=== PATIENT | female | born 1980 | race Caucasian/White ===

== ENCOUNTER 2017-01-11 14:38 | Emergency (ER) | payer OTHER ==
[~2017-01-11 14:38] MED LIST: MACROBID 100 M100 MG PO; NAPROSYN500 MG PO; NORCO 7.5-3251 EACH PO
[2017-01-11 16:37] LABS: RED BLOOD COUNT 5.27 M/UL (4.00-5.10); WHITE BLOOD COUNT 6.1 K/UL (4.5-11.0)
[2017-01-11 17:03] LABS: BUN/CREATININE RATIO 16 (0-10)
== END 2017-01-11 21:18 | disposition home or self-care (01) ==
LOC: ER1 14:38
PROVIDERS: Emergency Medicine
DX: R00.2 Palpitations (principal); R55 Syncope and collapse; R42 Dizziness and giddiness; Z88.1 Allergy status to other antibiotic agents
CPT/HCPCS: 36415; 71020; 80053; 83690; 84484; 85025; 85379; 93005; 96360; 96361; 99285

== ENCOUNTER 2020-11-26 11:00 | Emergency (ER) | payer OTHER ==
[~2020-11-26 11:00] MED LIST changes: +ANTIVERT 25MG T25 MG PO; +PREDNISONE20 MG PO; +ZOFRAN ODT 4 MG4 MG SL
[2020-11-26 11:43] LABS: HEMOGLOBIN 14.7 gm/dl (12.3-15.3); RED BLOOD COUNT 5.2 M/UL (4.00-5.10); WHITE BLOOD COUNT 7.6 K/UL (4.5-11.0)
[2020-11-26 12:01] LABS: BUN/CREATININE RATIO 17 (0-10)
== END 2020-11-26 16:05 | disposition home or self-care (01) ==
LOC: ER1 11:00
PROVIDERS: Emergency Medicine
DX: R53.1 Weakness (principal); R20.0 Anesthesia of skin; I10 Essential (primary) hypertension
CPT/HCPCS: 70450; 70496; 70498; 71045; 72125; 80053; 81001; 82550; 82553; 83605; 84484; 85025; 93005; 96374; 96375; 99285; J0360; J2405; Q9967

== ENCOUNTER 2020-12-01 13:44 | Emergency (ER) | payer OTHER ==
[2020-12-01 14:12] LABS: HEMOGLOBIN 15.8 gm/dl (12.3-15.3); RED BLOOD COUNT 5.25 M/UL (4.00-5.10); WHITE BLOOD COUNT 5.4 K/UL (4.5-11.0)
[2020-12-01 14:34] LABS: BUN/CREATININE RATIO 10 (0-10)
== END 2020-12-01 17:12 | disposition home or self-care (01) ==
LOC: ER1 13:44
PROVIDERS: Emergency Medicine
DX: R06.4 Hyperventilation (principal); I10 Essential (primary) hypertension
CPT/HCPCS: 36600; 70450; 71045; 80053; 81001; 82550; 82553; 82803; 83874; 84484; 85025; 85610; 85730; 93005; 96374; 99285; J2060

== ENCOUNTER → 2020-12-26 | Outpatient (CLI) | payer OTHER ==
[~2020-12-26] MED LIST changes: +METOPROLOL SUCC25 MG PO
== END ==
LOC: HEART 5 13:17
DX: I63.9 Cerebral infarction, unspecified (principal)

== ENCOUNTER 2021-01-04 15:10 | Emergency (ER) | payer OTHER ==
[~2021-01-04 15:10] MED LIST changes: -METOPROLOL SUCC25 MG PO
[2021-01-04 16:37] LABS: HEMOGLOBIN 14.7 gm/dl (12.3-15.3); RED BLOOD COUNT 4.97 M/UL (4.00-5.10); WHITE BLOOD COUNT 5.4 K/UL (4.5-11.0)
[2021-01-04 16:55] LABS: BUN/CREATININE RATIO 13 (0-10)
== END 2021-01-04 20:05 | disposition home or self-care (01) ==
LOC: ER1 15:10
PROVIDERS: Physician Assistant
DX: R55 Syncope and collapse (principal); R07.9 Chest pain, unspecified; R51.9 Headache, unspecified; E78.5 Hyperlipidemia, unspecified; J45.909 Unspecified asthma, uncomplicated; I10 Essential (primary) hypertension; Z86.73 Personal history of transient ischemic attack (TIA), and cerebral infarction without residual deficits; Z90.710 Acquired absence of both cervix and uterus; Z90.89 Acquired absence of other organs; Z88.0 Allergy status to penicillin; Z88.1 Allergy status to other antibiotic agents
CPT/HCPCS: 70450; 71045; 80053; 82550; 82553; 83874; 84484; 85025; 93005; 99285

== ENCOUNTER 2021-01-19 19:17 | Emergency (ER) | payer OTHER ==
[2021-01-19 20:02] LABS: HEMOGLOBIN 14.3 gm/dl (12.3-15.3); RED BLOOD COUNT 4.77 M/UL (4.00-5.10); WHITE BLOOD COUNT 6.2 K/UL (4.5-11.0)
[2021-01-19 20:20] LABS: BUN/CREATININE RATIO 15 (0-10)
[2021-01-19] MEDS ORDERED: METOPROLOL SUCC25 MG PO (21:17)
== END 2021-01-19 21:36 | disposition home or self-care (01) ==
LOC: ER1 19:17
PROVIDERS: Preventive Medicine Occupational Medicine
DX: R00.2 Palpitations (principal); R07.89 Other chest pain; I10 Essential (primary) hypertension
CPT/HCPCS: 70450; 71045; 80053; 81001; 83690; 83880; 84439; 84443; 85025; 85379; 85652; 86140; 87086; 93005; 99285

== ENCOUNTER 2021-02-18 22:10 | Emergency (ER) | payer OTHER ==
[~2021-02-18 22:10] MED LIST changes: +METOPROLOL SUCC25 MG PO
[2021-02-18 23:28] LABS: HEMOGLOBIN 14.7 gm/dl (12.3-15.3); RED BLOOD COUNT 4.94 M/UL (4.00-5.10); WHITE BLOOD COUNT 8.1 K/UL (4.5-11.0)
[2021-02-18 23:44] LABS: BUN/CREATININE RATIO 14 (0-10)
== END 2021-02-19 03:30 | disposition home or self-care (01) ==
LOC: ER1 22:10
PROVIDERS: Emergency Medicine
DX: R00.2 Palpitations (principal); I10 Essential (primary) hypertension; J45.909 Unspecified asthma, uncomplicated; Z86.73 Personal history of transient ischemic attack (TIA), and cerebral infarction without residual deficits; Z79.899 Other long term (current) drug therapy; Z20.822 Contact with and (suspected) exposure to COVID-19
CPT/HCPCS: 0240U; 70450; 71045; 80053; 81001; 82550; 82553; 83690; 84484; 85025; 93005; 99285; Q9967

== ENCOUNTER 2021-02-22 18:44 | Emergency (ER) | payer OTHER ==
[2021-02-22 20:10] LABS: HEMOGLOBIN 13.6 gm/dl (12.3-15.3); RED BLOOD COUNT 4.76 M/UL (4.00-5.10)
[2021-02-22 21:14] LABS: BUN/CREATININE RATIO 14 (0-10)
== END 2021-02-22 22:46 | disposition home or self-care (01) ==
LOC: ER1 18:44
PROVIDERS: Physician Assistant
DX: R20.2 Paresthesia of skin (principal); R00.2 Palpitations; E78.5 Hyperlipidemia, unspecified; Z86.73 Personal history of transient ischemic attack (TIA), and cerebral infarction without residual deficits; I10 Essential (primary) hypertension; Z90.710 Acquired absence of both cervix and uterus; Z88.0 Allergy status to penicillin; Z88.1 Allergy status to other antibiotic agents
CPT/HCPCS: 70450; 71045; 80053; 81001; 82550; 82553; 83735; 83874; 83880; 84439; 84443; 84484; 84703; 85025; 87086; 93005; 99284

== ENCOUNTER 2021-02-28 12:01 | Emergency (ER) | payer OTHER ==
[2021-02-28 14:02] LABS: HEMOGLOBIN 14.2 gm/dl (12.3-15.3); RED BLOOD COUNT 4.74 M/UL (4.00-5.10); WHITE BLOOD COUNT 5.1 K/UL (4.5-11.0)
[2021-02-28 14:25] LABS: BUN/CREATININE RATIO 17 (0-10)
== END 2021-02-28 18:07 | disposition home or self-care (01) ==
LOC: ER1 12:01
PROVIDERS: Emergency Medicine
DX: R55 Syncope and collapse (principal); Z86.73 Personal history of transient ischemic attack (TIA), and cerebral infarction without residual deficits
CPT/HCPCS: 70551; 71046; 80053; 81001; 82550; 82553; 83874; 84484; 84703; 85025; 93005; 96374; 96375; 99285; J1885; J2765

== ENCOUNTER 2021-03-04 15:42 | Emergency (ER) | payer OTHER ==
[2021-03-04 16:43] LABS: HEMOGLOBIN 14.1 gm/dl (12.3-15.3); RED BLOOD COUNT 4.76 M/UL (4.00-5.10)
[2021-03-04 17:07] LABS: BUN/CREATININE RATIO 19 (0-10)
== END 2021-03-04 20:50 | disposition home or self-care (01) ==
LOC: ER1 15:42
PROVIDERS: Physician Assistant
DX: R06.00 Dyspnea, unspecified (principal); R07.9 Chest pain, unspecified; R00.2 Palpitations; I10 Essential (primary) hypertension; J45.909 Unspecified asthma, uncomplicated; Z20.822 Contact with and (suspected) exposure to COVID-19; Z88.0 Allergy status to penicillin; Z88.8 Allergy status to other drugs, medicaments and biological substances; Z86.73 Personal history of transient ischemic attack (TIA), and cerebral infarction without residual deficits
CPT/HCPCS: 71045; 80053; 82550; 82553; 83874; 83880; 84484; 85025; 85379; 93005; 99285; U0002

== ENCOUNTER → 2021-08-31 | Outpatient (CLI) | payer OTHER | LOC: KOH-I 15:40 | DX: M25.512 Pain in left shoulder (principal); R07.89 Other chest pain; M25.561 Pain in right knee; M25.562 Pain in left knee; M54.2 Cervicalgia | CPT/HCPCS: 71120; 72040; 73030; 73564 ==

== ENCOUNTER 2021-09-12 02:37 | Emergency (ER) | payer OTHER ==
[2021-09-12 03:59] LABS: HEMOGLOBIN 13.3 gm/dl (12.3-15.3); RED BLOOD COUNT 4.64 M/UL (4.00-5.10); WHITE BLOOD COUNT 5.6 K/UL (4.5-11.0)
[2021-09-12 04:41] LABS: BUN/CREATININE RATIO 23 (0-10)
== END 2021-09-12 09:40 | disposition home or self-care (01) ==
LOC: ER1 02:37
PROVIDERS: Physician Assistant
DX: R51.9 Headache, unspecified (principal); R42 Dizziness and giddiness; H93.19 Tinnitus, unspecified ear; Z86.16 Personal history of COVID-19; Z86.73 Personal history of transient ischemic attack (TIA), and cerebral infarction without residual deficits; Z88.0 Allergy status to penicillin
CPT/HCPCS: 70496; 70498; 71045; 80053; 82550; 82553; 84484; 85025; 96374; 99284; J1885; Q9967

== ENCOUNTER 2021-10-16 10:09 | Observation (INO) | payer OTHER ==
[~2021-10-16] VITALS: Ht 165.1 cm; Wt 110.2 kg
[2021-10-16 11:07] LABS: HEMOGLOBIN 13.5 gm/dl (12.3-15.3); RED BLOOD COUNT 4.76 M/UL (4.00-5.10); WHITE BLOOD COUNT 3.5 K/UL (4.5-11.0)
[2021-10-16 11:35] LABS: BUN/CREATININE RATIO 16 (0-10)
[2021-10-16] MEDS ORDERED: ASPIRIN EC325 MG PO (13:17)
[2021-10-16] MEDS ORDERED: ATORVASTATIN CA40 MG PO (13:17)
[2021-10-16] MEDS ORDERED: FLONASE 0.05% N16 GM (13:17)
[2021-10-16] MEDS ORDERED: CLARITIN10 MG PO (13:18)
[2021-10-16] MEDS ORDERED: MONTELUKAST SOD10 MG PO (13:18)
[2021-10-16] MEDS ORDERED: LISINOPRIL10 MG PO (13:18)
[2021-10-16] MEDS ORDERED: HYDROCHLOROTH12.5 MG PO (13:18)
[2021-10-16] MEDS ORDERED: SERTRALINE HCL50 MG PO (13:18)
[2021-10-16] MEDS ORDERED: LEVOTHYROXINE88 MCG PO (13:20)
[2021-10-16] MEDS ORDERED: KETOCONAZOLE120 ML TOP (13:20)
[2021-10-16] MEDS ORDERED: MECLIZINE HCL25 MG PO (13:20)
[2021-10-17 06:23] LABS: HEMOGLOBIN 12.7 gm/dl (12.3-15.3); RED BLOOD COUNT 4.48 M/UL (4.00-5.10)
[2021-10-17 06:25] LABS: WHITE BLOOD COUNT 4.4 K/UL (4.5-11.0)
[2021-10-17 06:43] LABS: BUN/CREATININE RATIO 17 (0-10)
[2021-10-17] MEDS ORDERED: PLAVIX75 MG PO (19:20)
[2021-10-17] MEDS ORDERED: LISINOPRIL5 MG PO (19:20)
[2021-10-17] MEDS ORDERED: ECOTRIN81 MG PO (19:20)
== END 2021-10-17 20:03 | disposition home or self-care (01) ==
LOC: ER1 10:09 → CDU 12:44 → M/S 12:44
PROVIDERS: Emergency Medicine; Physician Assistant; ADMIT Internal Medicine
DX: I69.392 Facial weakness following cerebral infarction (principal); I10 Essential (primary) hypertension; E78.5 Hyperlipidemia, unspecified; E07.9 Disorder of thyroid, unspecified; E66.9 Obesity, unspecified; F41.9 Anxiety disorder, unspecified; Z20.822 Contact with and (suspected) exposure to COVID-19; Z68.41 Body mass index [BMI] 40.0-44.9, adult; Z88.0 Allergy status to penicillin; Z79.82 Long term (current) use of aspirin; Z79.899 Other long term (current) drug therapy; Z82.49 Family history of ischemic heart disease and other diseases of the circulatory system
CPT/HCPCS: ECHO; 70450; 70496; 70498; 70551; 71045; 80053; 80061; 82550; 82553; 84484; 84703; 85025; 85610; 85730; 93005; 93306; 99285; G0378; Q9967; U0002

== ENCOUNTER → 2021-11-01 | Outpatient (CLI) | payer OTHER ==
[~2021-11-01] MED LIST changes: +ASPIRIN EC325 MG PO; +ATORVASTATIN CA40 MG PO; +CLARITIN10 MG PO; +ECOTRIN81 MG PO; +FLONASE 0.05% N16 GM; +HYDROCHLOROTH12.5 MG PO; +KETOCONAZOLE120 ML TOP; +LEVOTHYROXINE88 MCG PO; +LISINOPRIL10 MG PO; +LISINOPRIL5 MG PO; +MECLIZINE HCL25 MG PO; +MONTELUKAST SOD10 MG PO; +PLAVIX75 MG PO; +SERTRALINE HCL50 MG PO
== END ==
LOC: KOH-I 13:00
DX: M79.602 Pain in left arm (principal)
CPT/HCPCS: 93971

== ENCOUNTER → 2022-03-12 | Outpatient (CLI) | payer OTHER | LOC: EXRD 10:15 | DX: R94.5 Abnormal results of liver function studies (principal); K76.0 Fatty (change of) liver, not elsewhere classified | CPT/HCPCS: 76700 ==